=== PATIENT | female | born 1960 | race Caucasian/White ===

== ENCOUNTER 2017-03-14 12:30 | Emergency (ER) | payer OTHER ==
[~2017-03-14] VITALS: Ht 162.6 cm; Wt 111.6 kg
[2017-03-14] MEDS ORDERED: CYCLOBENZAPRINE5 MG PO (15:15)
[2017-03-14] MEDS ORDERED: SENNA8.6 MG PO (15:15)
[2017-03-14] MEDS ORDERED: NORCO 5-325 TA1 EACH PO (15:19)
[2017-03-14 15:26] VITALS: BP 124/69
== END 2017-03-14 15:27 | disposition home or self-care (01) ==
LOC: ER 12:30
DX: S16.1XXA Strain of muscle, fascia and tendon at neck level, initial encounter (principal); S00.83XA Contusion of other part of head, initial encounter; M32.9 Systemic lupus erythematosus, unspecified; Z90.710 Acquired absence of both cervix and uterus; W01.198A Fall on same level from slipping, tripping and stumbling with subsequent striking against other object, initial encounter; Y93.89 Activity, other specified; Y92.89 Other specified places as the place of occurrence of the external cause; Y99.8 Other external cause status